=== PATIENT | female | born 1965 | race Hispanic/Latino ===

== ENCOUNTER 2021-04-14 03:18 | Emergency (ER) | payer BC ==
--- OUTSIDE RECORDS SUMMARY | 2021-04-14 03:21 | XMS REPORT | Continuity of Care Document ---
:1965 Author Organization [facility] t Address [address] [place] [address] Care Team Providers Name Role Phone Tristan Lagunas DO Attending Clinician Kaitlin GARG Attending Clinician Problems This patient has no known problems. Allergies, Adverse Reactions, Alerts This patient has no known allergies or adverse reactions. Medications This patient has no known medications. Procedures This patient has no known procedures. Encounters Start End Encounter Admission Attending Care Care Encounter Source Date/Time Date/Time Type Type Clinicians Facility Department ID 2020-12-15 2020-12-15 Patient ADAM Lagunas [id number] 00:00:00 00:00:00 Outreach Johnny BLANC [id number] Tristan [facility] [id number] BRUCE [id number] 2020-09-25 2020-09-25 Office ADAM Madrigal [id number] 14:58:40 15:28:40 Visit Justyna Johnson [id number] Eleonora [id number] Caro [id number] [address] Building Results This patient has no known results.
[2021-04-14 04:31] LABS: Absolute Lymphocytes (CBC) 2.6 K/uL (0.7-4.9); Basophils % 0.3 % (0-1.3); Hematocrit 39.3 % (36.0-45.0); Lymphocytes % 27.9 % (15.3-44.8)
[2021-04-14] MEDS ORDERED: MORPHINE 4 MG/ML SYR ONE ×2 (04:38→06:34)
[2021-04-14] MEDS ORDERED: ONDANSETRON 4 MG/2 ML VIAL ONE (04:38)
[2021-04-14 04:49] LABS: ALT/SGPT 48 U/L (12-78); AST/SGOT 55 U/L (15-37); Alkaline Phosphatase 68 U/L (45-117); BUN Blood Urea Nitrogen 10 mg/dL (7-18); Bicarbonate 25 mmol/L (21-32); Bilirubin Direct < 0.1 mg/dL (0-0.2); Bilirubin Total 0.5 mg/dL (0.2-1.0); Glucose Level 113 mg/dL (74-106); Lipase 55 U/L (73-393); Potassium 4.2 mmol/L (3.5-5.1); Protein, Total 7.5 g/dL (6.4-8.2); Sodium Level 140 mmol/L (136-145)
[2021-04-14 06:12] LABS: Urine Blood Trace-intact (Negative); Urine Glucose Negative (Negative); Urine Protein Negative (Negative); Urine Specific Gravity 1.015 (1.005-1.030); Urine pH 5.5 (5.0-7.0)
--- NOTE | 2021-04-14 08:35 | RAD REPORT ---
EXAM DESCRIPTION: CT - Abdomen Pelvis W Contrast - 04/14/2021 5:53 am CLINICAL HISTORY: Abdominal pain COMPARISON: none. TECHNIQUE: Computed axial tomography of the abdomen pelvis was obtained. 100 cc Isovue-300 was admin istered intravenously. Oral contrast was not requested which limits evaluation of bowel. All CT scans are performed using dose optimization technique as appropriate and may include automated exposure control or mA/KV adjustment according to patient size. FINDINGS: The exam was sent to [facility]ology/[facility] but did not get read. They are being submi tted to me for interpretation. Mild fatty infiltration of liver. Spleen, pancreas, adrenal and kidneys appear unremarkable. Postsurgical changes involve the cecum. There is stranding within the adjacent fat and mild lymphaden opathy. The proximal ascending colon is distended with stool measuring 7.3 centimeters. Small ventral hernia contains fat within the mid abdomen. IMPRESSION: Postsurgical changes involve cecum. The proximal ascending colon is mildly distended wit h stool. Stranding within the adjacent fat of the ascending colon near the anastomotic site could be a normal postsurgical change if the surgery is recent. If not recent surgery this probably indicates inflammation. There is mild adjacent lymphadenopathy. If the surgery was for neoplasm this could mine beverley recurrent disease.
--- NOTE | 2021-04-14 08:58 | ER ---
Nurse's Notes [facility] Name: iLn Garrison Age: 56 yrs Sex: Female : 1965 Arrival Date: 04/14/2021 Time: 03:19 Bed 19 Private MD: Ryan Cheema R Diagnosis: Abdominal pain, Generalized Presentation: 04/14 03:33 Chief complaint: Patient states: having lower abdominal pain stared last Thursday with rr5 diarrhea and fever. no nausea or vomiting reported. Coronavirus screen: Client denies travel out of the [place] in the last 14 days. Ebola Screen: Patient negative for fever greater than or equal to 101.5 degrees Fahrenheit, and additional compatible Ebola Virus Disease symptoms Patient denies exposure to infectious person. Patient denies travel to an Ebola-affected area in the 21 days before illness onset. Initial Sepsis Screen: Does the patient meet any 2 criteria? No. Patient's initial sepsis screen is negative. Does the patient have a suspected source of infection? No. Patient's initial sepsis screen is negative. Risk Assessment: Do you want to hurt yourself or someone else? Patient reports no desire to harm self or others. Onset of symptoms was April 14, 2021. 03:33 Method Of Arrival: Ambulatory rr5 03:33 Acuity: KEYSHA 3 rr5 Historical: - Allergies: 03:34 No Known Allergies; rr5 - PMHx: 03:34 Diabetes mellitus; rr5 - PSHx: 03:34 hysterectomy; Appendectomy; Cholecystectomy; rr5 - Immunization history:: Adult Immunizations up to date. - Social history:: Smoking status: unknown. Screenin:32 Abuse screen: Denies threats or abuse. Denies injuries from another. Nutritional rr5 screening: No deficits noted. Tuberculosis screening: No symptoms or risk factors identified. Fall Risk IV access (20 points). Total Mohamud Fall Scale indicates No Risk (0-24 pts). Assessment: 04:30 General: Appears in no apparent distress. uncomfortable, Behavior is calm, cooperative, rr5 crying, Reports fever for. Pain: Complains of pain in abdomen Pain currently is 10 out of 10 on a pain scale. Quality of pain is described as aching, Pain began gradually, Is intermittent. Neuro: Level of Consciousness is awake, alert, obeys commands, Oriented to person, place, time. Cardiovascular: Capillary refill < 3 seconds Patient's skin is warm and dry. Respiratory: Airway is patent Respiratory effort is even, unlabored, Respiratory pattern is regular, symmetrical. GI: Abdomen is round non-distended, Abd is soft Reports lower abdominal pain, upper abdominal pain, diarrhea. : No signs and/or symptoms were reported regarding the genitourinary system. EENT: No signs and/or symptoms were reported regarding the EENT system. Derm: Skin temperature is warm. Musculoskeletal: Capillary refill < 3 seconds. 05:50 Reassessment: Patient appears in no apparent distress at this time. Patient is alert, rr5 oriented x 3, equal unlabored respirations, skin warm/dry/pink. awaiting for CT result Patient states symptoms have improved. 06:16 Reassessment: Patient appears in no apparent distress at this time. Patient is alert, rr5 oriented x 3, equal unlabored respirations, skin warm/dry/pink. complaining of abdominal pain 8, provider aware with order made and carried out. 07:00 General: Appears in no apparent distress. Behavior is calm, cooperative. Pain: rb3 Complains of pain in abdomen Pain currently is 5 out of 10 on a pain scale. Neuro: Level of Consciousness is awake, alert, obeys commands, Oriented to person, place, time, situation. Cardiovascular: Patient's skin is warm and dry. Respiratory: Airway is patent Respiratory effort is even, unlabored, Respiratory pattern is regular, symmetrical. GI: Reports diarrhea. : No signs and/or symptoms were reported regarding the genitourinary system. 08:00 Reassessment: Patient appears in no apparent distress at this time. No changes from rb3 previously documented assessment. 09:00 Reassessment: Patient appears in no apparent distress at this time. Patient and/or rb3 family updated on plan of care and expected duration. Pain level reassessed. Patient is alert, oriented x 3, equal unlabored respirations, skin warm/dry/pink. Vital Signs: 03:33 BP 131 / 95; Pulse 86; Resp 16; Temp 99; Pulse Ox 100% ; Weight 90.72 kg; Height 5 ft. rr5 4 in. (162.56 cm); Pain 10/; 05:51 BP 141 / 89; Pulse 90; Resp 19; Pulse Ox 98% ; rr5 06:15 BP 147 / 77; Pulse 85; Resp 16; Pulse Ox 99% ; Pain 8/10; rr5 06:33 BP 146 / 77; Pulse 84; Resp 16; Pulse Ox 100% on R/A; ak2 07:30 BP 140 / 78; Pulse 102; Resp 16; Pulse Ox 99% ; Pain 5/10; rb3 08:15 BP 127 / 71; Pulse 98; Resp 17; Pulse Ox 96% ; rb3 09:10 BP 143 / 67; Pulse 103; Resp 19; Pulse Ox 99% ; rb3 03:33 Body Mass Index 34.33 (90.72 kg, 162.56 cm) rr5 ED Course: 03:19 Patient arrived in ED. am4 03:19 Ryan Cheema MD is Private Physician. am4 03:20 Gilberto Bhardwaj RN is Primary Nurse. rr5 03:29 Chuck Horta MD is Attending Physician. 7 03:34 Triage completed. rr5 04:15 Inserted saline lock: 20 gauge in right antecubital area, using aseptic technique. rr5 Blood collected. 04:30 EKG done, by ED staff, reviewed by Chuck Horta MD. rr5 04:30 Patient has correct armband on for positive identification. Bed in low position. Call rr5 light in reach. Side rails up X2. Pulse ox on. NIBP on. 04:32 Arm band placed on right wrist. rr5 05:53 CT Abd/Pelvis - IV Contrast Only In Process Unspecified. EDMS 06:16 No provider procedures requiring assistance completed. rr5 09:35 IV discontinued, intact, bleeding controlled, No redness/swelling at site. Pressure rb3 dressing applied. Administered Medications: 04:20 Drug: NS 0.9% 1000 ml Route: IV; Rate: 1000 ml; Site: right antecubital; ak2 06:00 Follow up: Response: No adverse reaction; IV Status: Completed infusion; IV Intake: rr5 1000ml 04:20 Drug: morphine 4 mg Route: IVP; Site: right antecubital; ak2 05:20 Follow up: Response: No adverse reaction; Pain is decreased; RASS: Alert and Calm (0) rr5 04:20 Drug: Zofran (Ondansetron) 4 mg Route: IVP; Site: right antecubital; ak2 05:20 Follow up: Response: No adverse reaction rr5 06:15 Drug: morphine 4 mg {Note: rass 0.} Route: IVP; Site: right antecubital; rr5 07:06 Follow up: Response: No adverse reaction; RASS: Alert and Calm (0) rr5 09:32 Drug: TORadol (ketorolac) 30 mg Route: IVP; Site: right antecubital; rb3 12:37 Follow up: Response: Medication administered at discharge. rb3 Intake: 06:00 IV: 1000ml; Total: 1000ml. rr5 Outcome: 08:58 Discharge ordered by MD. tw4 09:35 Discharged to home via wheelchair, with family. rb3 09:35 Condition: stable 09:35 Discharge instructions given to patient, Instructed on discharge instructions, follow up and referral plans. medication usage, Demonstrated understanding of instructions, follow-up care, medications, Prescriptions given X 1. 09:36 Patient left the ED. rb3 Signatures: Dispatcher [employer] EDMS Denis Frank MD MD tw4 Gilberto Bhardwaj, RN RN rr5 Chuck Horta MD MD mh7 Gisella Alexander, RN RN rb3 Jillian Yancey Juan Osuna de2
--- NOTE | 2021-04-14 08:58 | EDPHYS ---
Physician Documentation [facility] Name: Lin Garrison Age: 56 yrs Sex: Female : 1965 Arrival Date: 04/14/2021 Time: 03:19 Bed 19 Private MD: Ryan Cheema R ED Physician Chuck Horta HPI: 04/14 04:00 This 56 yrs old Female presents to ER via Ambulatory with complaints of mh7 Abdominal Pain. 04:00 The patient presents with abdominal pain that is diffuse. Onset: The symptoms/episode mh7 began/occurred 4 day(s) ago. The symptoms do not radiate. Associated signs and symptoms: Pertinent positives: diarrhea, fever, Pertinent negatives: nausea and vomiting, anorexia, blood in stools, chest pain, constipation, dysuria, headache, hematuria, nausea, palpitations, shortness of breath, vaginal discharge, vomiting, vomiting blood. The symptoms are described as intermittent, vague, waxing/waning. Modifying factors: The symptoms are alleviated by nothing, the symptoms are aggravated by nothing. Severity of pain: At its worst the pain was moderate 3 day(s) ago, in the emergency department the pain is unchanged. Historical: - Allergies: 03:34 No Known Allergies; rr5 - PMHx: 03:34 Diabetes mellitus; rr5 - PSHx: 03:34 hysterectomy; Appendectomy; Cholecystectomy; rr5 - Immunization history:: Adult Immunizations up to date. - Social history:: Smoking status: unknown. ROS: 04:00 Constitutional: Negative for fever, chills, and weight loss, Eyes: Negative for injury, mh7 pain, redness, and discharge, ENT: Negative for injury, pain, and discharge, Neck: Negative for injury, pain, and swelling, Cardiovascular: Negative for chest pain, palpitations, and edema, Respiratory: Negative for shortness of breath, cough, wheezing, and pleuritic chest pain, Back: Negative for injury and pain, : Negative for injury, bleeding, discharge, and swelling, MS/Extremity: Negative for injury and deformity, Skin: Negative for injury, rash, and discoloration, Neuro: Negative for headache, weakness, numbness, tingling, and seizure, Psych: Negative for depression, anxiety, suicide ideation, homicidal ideation, and hallucinations, Allergy/Immunology: Negative for hives, rash, and allergies, Endocrine: Negative for neck swelling, polydipsia, polyuria, polyphagia, and marked weight changes, Hematologic/Lymphatic: Negative for swollen nodes, abnormal bleeding, and unusual bruising. Exam: 04:00 Constitutional: This is a well developed, well nourished patient who is awake, alert, mh7 and in no acute distress. Head/Face: Normocephalic, atraumatic. Eyes: Pupils equal round and reactive to light, extra-ocular motions intact. Lids and lashes normal. Conjunctiva and sclera are non-icteric and not injected. Cornea within normal limits. Periorbital areas with no swelling, redness, or edema. Neck: Trachea midline, no thyromegaly or masses palpated, and no cervical lymphadenopathy. Supple, full range of motion without nuchal rigidity, or vertebral point tenderness. No Meningismus. Chest/axilla: Normal chest wall appearance and motion. Nontender with no deformity. No lesions are appreciated. Cardiovascular: Regular rate and rhythm with a normal S1 and S2. No gallops, murmurs, or rubs. Normal PMI, no JVD. No pulse deficits. Respiratory: Lungs have equal breath sounds bilaterally, clear to auscultation and percussion. No rales, rhonchi or wheezes noted. No increased work of breathing, no retractions or nasal flaring. 04:00 Back: No spinal tenderness. No costovertebral tenderness. Full range of motion. Skin: Warm, dry with normal turgor. Normal color with no rashes, no lesions, and no evidence of cellulitis. MS/ Extremity: Pulses equal, no cyanosis. Neurovascular intact. Full, normal range of motion. Neuro: Awake and alert, GCS 15, oriented to person, place, time, and situation. Cranial nerves II-XII grossly intact. Motor strength 5/5 in all extremities. Sensory grossly intact. Cerebellar exam normal. Normal gait. Psych: Awake, alert, with orientation to person, place and time. Behavior, mood, and affect are within normal limits. 04:00 Abdomen/GI: Inspection: abdomen appears normal, Bowel sounds: normal, in all quadrants, Palpation: moderate abdominal tenderness, in all quadrants, mass, is not appreciated, rebound tenderness, is not appreciated, voluntary guarding, is not appreciated, involuntary guarding, is not appreciated, no appreciated organomegaly, Rectal exam: the exam is deferred, because of patient request, Indicators: McBurney's point is not tender, Griffith's sign is negative, Rovsing's sign is negative, Obturator sign is negative, Psoas sign is negative, Liver: no appreciated palpable abnormalities, Hernia: not appreciated. Vital Signs: 03:33 BP 131 / 95; Pulse 86; Resp 16; Temp 99; Pulse Ox 100% ; Weight 90.72 kg; Height 5 ft. rr5 4 in. (162.56 cm); Pain 10/10; 05:51 BP 141 / 89; Pulse 90; Resp 19; Pulse Ox 98% ; rr5 06:15 BP 147 / 77; Pulse 85; Resp 16; Pulse Ox 99% ; Pain 8/10; rr5 06:33 BP 146 / 77; Pulse 84; Resp 16; Pulse Ox 100% on R/A; ak2 07:30 BP 140 / 78; Pulse 102; Resp 16; Pulse Ox 99% ; Pain 5/10; rb3 08:15 BP 127 / 71; Pulse 98; Resp 17; Pulse Ox 96% ; rb3 09:10 BP 143 / 67; Pulse 103; Resp 19; Pulse Ox 99% ; rb3 03:33 Body Mass Index 34.33 (90.72 kg, 162.56 cm) rr5 MDM: 07:25 Transition of care: After a detail discussion of the patient's case, care is 7 transferred to Denis Frank MD. 08:58 Patient medically screened. 09:21 Data reviewed: vital signs, nurses notes, radiologic studies, CT scan. 04/14 03:52 Order name: Basic Metabolic Panel; Complete Time: 05:55 04/14 03:52 Order name: CBC with Diff; Complete Time: 05:55 04/14 03:52 Order name: Hepatic Function; Complete Time: 05:55 04/14 03:52 Order name: Lipase; Complete Time: 05:55 04/14 04:16 Order name: CT Abd/Pelvis - IV Contrast Only; Complete Time: 08:57 [facility] 04/14 09:21 Interpretation: No acute disease except. 4 04/14 06:11 Order name: Urine Dipstick-Ancillary; Complete Time: 06:13 EDMS 04/14 03:52 Order name: IV Saline Lock; Complete Time: 04:12 rr5 04/14 03:52 Order name: Labs collected and sent; Complete Time: 04:12 rr5 04/14 04:16 Order name: Urine Dipstick-Ancillary (obtain specimen); Complete Time: 06:15 mh7 04/14 04:16 Order name: EKG - Nurse/Tech; Complete Time: 04:30 mh7 Administered Medications: 04:20 Drug: NS 0.9% 1000 ml Route: IV; Rate: 1000 ml; Site: right antecubital; ak2 06:00 Follow up: Response: No adverse reaction; IV Status: Completed infusion; IV Intake: rr5 1000ml 04:20 Drug: morphine 4 mg Route: IVP; Site: right antecubital; ak2 05:20 Follow up: Response: No adverse reaction; Pain is decreased; RASS: Alert and Calm (0) rr5 04:20 Drug: Zofran (Ondansetron) 4 mg Route: IVP; Site: right antecubital; ak2 05:20 Follow up: Response: No adverse reaction rr5 06:15 Drug: morphine 4 mg {Note: rass 0.} Route: IVP; Site: right antecubital; rr5 07:06 Follow up: Response: No adverse reaction; RASS: Alert and Calm (0) rr5 09:32 Drug: TORadol (ketorolac) 30 mg Route: IVP; Site: right antecubital; rb3 12:37 Follow up: Response: Medication administered at discharge. rb3 Disposition Summary: 04/14/21 08:58 Discharge Ordered Location: Home tw4 Problem: new tw4 Symptoms: have improved tw4 Condition: Stable tw4 Diagnosis - Abdominal pain, Generalized tw4 Followup: tw4 - With: Private Physician - When: Upon discharge from the Emergency Department - Reason: Recheck today's complaints, Continuance of care, Re-evaluation by your physician Discharge Instructions: - Discharge Summary Sheet tw4 - Constipation, Adult tw4 - Abdominal Pain, Adult, [id number] tw4 - Ventral Hernia tw4 Forms: - Medication Reconciliation Form tw4 - Thank You Letter tw4 - Antibiotic Education tw4 - Prescription Opioid Use tw4 Prescriptions: - Miralax 17 gram Oral powder in packet - take 1 packet by ORAL route once daily; 1 packet; Refills: 0, Product Selection tw4 Permitted Signatures: Dispatcher [employer] Denis Craig MD MD tw4 Gilberto Bhardwaj RN RN rr5 Chuck Horta MD MD mh7 Gisella Alexander RN RN rb3 Juan Ren2 Corrections: (The following items were deleted from the chart) 05:02 04:59 This 56 yrs old Female presents to ER via Ambulatory with complaints of mh7 Abdominal Pain. mh7
[2021-04-14 09:44] VITALS: TEMP 99
[2021-04-14] MEDS ORDERED: KETOROLAC 30 MG/ML INJ ONE (09:47)
[2021-04-14 09:54] VITALS: BP 143/67; O2SAT 99
--- NOTE | 2021-04-15 16:09 | EKG ---
Test Date: 2021-04-14 Test Time: 04:25:04 County Records Management Officer: ISABEL MEASUREMENT RESULTS: Intervals: Rate: 89 MA: 174 QRSD: 70 QT: 354 QTc: 430 [place]: P: 63 MA: 174 QRS: 33 T: 41 INTERPRETIVE STATEMENTS: Normal sinus rhythm Possible Left atrial enlargement Borderline ECG No previous ECG available for comparison Electronically Signed On 04-15-21 16:04:34 CDT by Chema Gomez
== END 2021-04-14 09:36 | disposition home or self-care (01) ==
LOC: ER 03:18
DX: R10.84 Generalized abdominal pain (principal); E11.9 Type 2 diabetes mellitus without complications
CPT/HCPCS: 96361; 93005; 85025; 80048; 36415; 80076; 81003; 83690; 74177; 96375; 96374; 99284; Q9967; J2405

== ENCOUNTER 2025-01-01 07:54 | Inpatient (IN) | payer BC ==
--- OUTSIDE RECORDS SUMMARY | 2025-01-01 07:58 | XMS REPORT | Continuity of Care Document ---
Author Name Unknown Address [address] [place] [address] [facility] [place] Address [address] [place] [address] Care Team Providers Care Assembler Wire Mesh Gate Name Role Phone CYNTHIA GEOVANNY CHAKRABORTY Primary Care Physician Unavail JEREMY Tatum Attending Clinician JEREMY Yun Attending Clinician Vanessa altman Doctor Unassigned, [place] Attending Clinician U JUSTYNA Guzman Attending Clinician Unavailable Justyna Garcia PA-C Attending Clinician Johnny Lagunas DO Attending Clinician [phone] ZULEMA GARCIA Attending Clinician Unavailable JEREMY HOGAN Admitting Clinician ZULEMA Monroy Admitting Clinician Unavailable Payers Payer Name Policy Type Policy Number Effective Date Expirati on Date Source [facility] O [id number] 2014 00:00:00 Problems Condition Name Condition Details Condition Category Status Onset Date Resolution Date Last Treatment Date Treating Clinician Comments Source Postmenopa usal HRT (hormone replacemen t therapy) Postmenopa usal HRT (hormone replacemen t therapy) Disease Active 02-06 00:00: 00 [facility] [place] History of total hysterecto my with no history of abnormal cervical Papanicola ou smear History of total hysterecto my with no history of abnormal cervical Papanicola ou smear Disease Active 2016-10 00:00: 00 [facility] Obese Obese Disease Active 06-27 00:00: 00 [facility] ARCHIE (stress urinary incontinen ce, female) ARCHIE (stress urinary incontinen ce, female) Disease Active 06-24 00:00: 00 [facility] Screening for colon cancer Screening for colon cancer Disease Active 06-24 00:00: 00 [facility] Depression Depression Disease Active 06-24 00:00: 00 [facility] Decreased libido Decreased libido Disease Active 06-24 00:00: 00 [facility] Allergies, Adverse Reactions, Alerts Allergy Name Allergy Type Status Severity Reaction(s) Onset Date Inactive Date Treating Clinician Comments Source NO KNOWN ALLERGIE S Drug Class Active [facility] Social History Social Habit Start Date Stop Date Quantity Comments Source [facility] intake 2024-02-12 00:00:00 2024-02-12 00:00:00 0 /d [facility] Exposure to SARS-CoV-2 (event) 2023-01-27 00:00:00 2023-02-06 14:15:00 Not sure [facility] Tobacco use and exposure 2023-02-06 00:00:00 2023-02-06 00:00:00 Smokeless tobacco non-user [facility] Alcohol intake 2023-02-06 00:00:00 2023-02-06 00:00:00 0 /d [facility] History of Social function 2019-04-14 00:00:00 2019-04-14 00:00:00 [facility] Sex assigned at 1965 00:00:00 1965 00:00:00 [facility] Smoking Status Start Date Stop Date Source Never smoked tobacco [facility] Medications Ordered Medication Name Filled Medication Name Start Date Stop Date Current Medication? Ordering Clinician Indication Dosage Frequency Signature (SIG) Comments Components Source estradioL 0.5 mg tablet 02-11 00:00: 00 Yes [id number] .5mg Take 1 tablet by mouth in the morning. Please cut in half an take half a pill daily. [facility] estradioL 0.5 mg tablet 04-09 00:00: 00 02-11 00:00 :00 No [id number] .5mg Take 1 tablet by mouth in the morning. [facility] estradioL 0.5 mg tablet 2020-10 00:00: 00 04-09 00:00 :00 No [id number] .5mg Take 1 tablet by mouth daily. [facility] estradioL 0.5 mg tablet 2019-10 00:00: 00 09-30 00:00 :00 No [id number] .5mg Take 1 tablet by mouth daily. [facility] Immunizations Ordered Immunization Name Filled Immunization Name Date Status Comments Source Influenza Virus Vaccine 2021-07-05 00:00:00 Completed [facility] Influenza Virus Vaccine 2021-07-05 00:00:00 Completed [facility] Influenza Virus Vaccine 2021-07-05 00:00:00 Completed [facility] Influenza Virus Vaccine 2021-07-05 00:00:00 Completed [facility] Influenza Virus Vaccine 2021-07-05 00:00:00 Completed [facility] Influenza Virus Vaccine 2020-09-01 00:00:00 Completed [facility] Influenza Virus Vaccine 2020-09-01 00:00:00 Completed [facility] Influenza Virus Vaccine 2020-09-01 00:00:00 Completed [facility] Influenza Virus Vaccine 2020-09-01 00:00:00 Completed [facility] Influenza Virus Vaccine 2020-09-01 00:00:00 Completed [facility] Pneumococcal Polysaccharide, PPSV23 (PNEUMOVAX) 2020-08-10 00:00:00 Completed [facility] Pneumococcal Polysaccharide, PPSV23 (PNEUMOVAX) 2020-08-10 00:00:00 Completed [facility] Pneumococcal Polysaccharide, PPSV23 (PNEUMOVAX) 2020-08-10 00:00:00 Completed [facility] Pneumococcal Polysaccharide, PPSV23 (PNEUMOVAX) 2020-08-10 00:00:00 Completed [facility] Pneumococcal Polysaccharide, PPSV23 (PNEUMOVAX) 2020-08-10 00:00:00 Completed [facility] Influenza Virus Vaccine 2018-07-09 00:00:00 Completed [facility] Influenza Virus Vaccine 2018-07-09 00:00:00 Completed [facility] Influenza Virus Vaccine 2018-07-09 00:00:00 Completed [facility] Influenza Virus Vaccine 2018-07-09 00:00:00 Completed [facility] Influenza Virus Vaccine 2018-07-09 00:00:00 Completed [facility] Influenza Virus Vaccine Unknown Completed [facility] Pneumococcal Polysaccharide, PPSV23 (PNEUMOVAX) Unknown Completed [facility] Pneumococcal Polysaccharide, PPSV23 (PNEUMOVAX) Unknown Completed [facility] Influenza Virus Vaccine Unknown Completed [facility] Influenza Virus Vaccine Unknown Completed [facility] Pneumococcal Polysaccharide, PPSV23 (PNEUMOVAX) Unknown Completed [facility] Influenza Virus Vaccine Unknown Completed [facility] Pneumococcal Polysaccharide, PPSV23 (PNEUMOVAX) Unknown Completed [facility] Vital Signs Vital Name Observation Time Observation Value Comments S ource Systolic blood pressure 2024-02-12 16:35:00 138 mm[Hg] [facility] Diastolic blood pressure 2024-02-12 16:35:00 78 mm[Hg] [facility] Heart rate 2024-02-12 16:35:00 97 /min [facility] acute hospital Body temperature 2024-02-12 16:35:00 36.89 Lillian [facility] Body height 2024-02-12 16:35:00 162.6 cm [facility] Body weight 2024-02-12 16:35:00 87.544 kg [facility] BMI 2024-02-12 16:35:00 33.13 kg/m2 [facility] Systolic blood pressure 2023-02-06 19:36:00 97 mm[Hg] [facility] Diastolic blood pressure 2023-02-06 19:36:00 65 mm[Hg] [facility] Heart rate 2023-02-06 19:36:00 86 /min General acute hospital Body temperature 2023-02-06 19:36:00 37.06 Lillian [facility] Body height 2023-02-06 19:36:00 162.6 cm [facility] Body weight 2023-02-06 19:36:00 95.618 kg [facility] BMI 2023-02-06 19:36:00 36.18 kg/m2 [facility] Systolic blood pressure 2021-09-30 14:26:00 123 mm[Hg] [place] [facility] Diastolic blood pressure 2021-09-30 14:26:00 85 mm[Hg] [place] [facility] Heart rate 2021-09-30 14:26:00 62 /min General acute hospital Body temperature 2021-09-30 14:26:00 37.06 Lillian [facility] Body height 2021-09-30 14:26:00 162.6 cm [facility] Body weight 2021-09-30 14:26:00 91.717 kg [facility] BMI 2021-09-30 14:26:00 34.71 kg/m2 [facility] Procedures Procedure Date / Time Performed Performing Clinicia n Source ASSIGNMENT OF BENEFITS 2023-02-06 19:17:16 Docto r Unassigned, [place] [facility] Encounters Start Date/Time End Date/Time Encounter Type Admission Type Attending [facility] Care Department Encounter ID Source 2024-02-12 12:29:10 2024-02-12 23:59:00 Outpatient R JEREMY RICCI MARISOL [facility] [id number] [facility] 2024-02-12 12:29:10 2024-02-12 23:59:00 Hospital Encounter Jeremy Ricci [facility] [id number] 350.1.13.10 4.2.7.2.686 [id number] [facility] 2024-02-12 00:00:00 2024-02-12 16:32:30 [facility] [id number] 350.1.13.10 4.2.7.2.686 [id number] [facility] 2024-02-12 11:30:00 2024-02-12 12:00:00 [facility] 1.2840.114 350.1.13.10 4.2.7.2.686 [id number] [facility] 2023-08-18 00:00:00 2023-08-18 00:00:00 Patient Secure Msg Doctor Unassigned, [place] [facility] 1.284.114 350.1.13.10 4.2.7.2.686 [id number] [facility] 2023-04-09 00:00:00 2023-04-09 00:00:[facility] 1.2840.114 350.1.13.10 4.2.7.2.686 [id number] [facility] 2023 09:26:30 2023 23:59:00 Outpatient R VILLELA-MIRIAN S, JEREMY VILLELA-MIRIAN S, JEREMY [facility] [id number] [facility] 2023 09:26:30 2023 23:59:00 Hospital Encounter Villela-Miiran s, Jeremy [facility] 1.2840.114 350.1.13.10 4.2.7.2.686 [id number] [facility] 2023-02-06 14:30:00 2023-02-06 15:12:41 Office Visit [facility]ian [facility]Jeremy [facility] 1.2840.114 350.1.13.10 4.2.7.2.686 [id number] [facility] 2023-02-06 14:30:00 2023-02-06 15:12:41 Outpatient R VILLELA-MIRIAN S, JEREMY VILLELA-MIRIAN S, JEREMY [facility] [id number] [facility] 2023-02-06 00:00:00 2023-02-06 00:00:00 Orders Only Doctor Unassigned, [place] [facility] [id number] 350.1.13.10 4.2.7.2.686 [id number] [facility] 2022-09-30 08:00:00 2022-09-30 08:00:00 [id number] 2021-09-30 08:00:00 2021-09-30 08:53:29 Outpatient R [facility] [id number] [facility] 2021-09-30 08:00:00 2021-09-30 08:53:29 Office Visit Justyna Garcia [facility] 1.2840.114 350.1.13.10 4.2.7.2.686 [id number] [facility] 2020-12-15 00:00:00 2020-12-15 00:00:00 Patient Outreach Johnny Lagunas [facility] [id number] 350.1.13.10 4.2.7.2.686 [id number] 2020-12-15 00:00:00 2020-12-15 00:00:00 Patient Outreach Johnny Lagunas [facility] 1.2.840.114 350.1.13.10 4.2.7.2.686 [id number] [facility] 2020-09-25 14:58:40 2020-09-25 15:28:40 [facility] [id number] 350.1.13.10 4.2.7.2.686 [id number] 2020-09-25 14:58:40 2020-09-25 15:28:40 [facility] [id number] 350.1.13.10 4.2.7.2.686 [id number] [facility] 2020-09-25 15:00:00 2020-09-25 15:00:00 Outpatient R JUSTYNA GARCIA [facility] [id number] [facility] 2020-09-25 00:00:00 2020-09-25 00:00:00 Orders Only Doctor Unassigned, [place] [facility] [id number] 350.1.13.10 4.2.7.2.686 [id number] [facility] 2019-09-07 10:01:07 2019-09-07 23:59:00 Outpatient R ZULEMA GARCIA [facility] [id number] [facility] Notes Date/Time Note Provider Source 2024-02-12 16:31:52 Spoke with pharmacy. Pharmacy advised patient is cut 0.5 mg tablet in half. Take daily. Skinny Alston RN [facility] 2024-02-12 12:11:17 [facility] pharm needs to go over directions on med that was called in. Migdalia Gandara [facility]
[2025-01-01] MEDS ORDERED: ONDANSETRON 4 MG/2 ML VIAL ONE (08:17)
[2025-01-01] MEDS ORDERED: MORPHINE 4 MG/ML SYR ONE (08:17)
[2025-01-01 08:56] LABS: Absolute Basophils 0.1 K/uL (0-0.5); Absolute Lymphocytes (CBC) 1.3 K/uL (0.7-4.9); Absolute Monocytes 0.2 K/uL (0.1-1.3); Absolute Neutrophil 7.5 K/uL (1.8-8.0); Basophils % 0.6 % (0-1.3); Hematocrit 42.1 % (36.0-45.0); Hemoglobin 14.5 g/dL (12.0-15.0); Lymphocytes % 14.1 % (15.3-44.8); MCH 32.5 pg (27.0-35.0); MCHC 34.6 g/dL (32.0-36.0); MCV 93.9 fL (80-100); MPV 8.5 fL (7.6-11.3); Monocytes % 2.7 % (3.3-12.3); Neutrophils % 82.6 % (41.7-73.7); Platelets 201 thou/uL (152-406); RBC Red Blood Cell Count 4.48 M/uL (3.86-4.86); Red Cell Distribution Width 13.1 % (12.1-15.2)
[2025-01-01 08:59] LABS: Influenza A Ag Negative; Influenza B Ag Negative; SARS-CoV-2 Antigen Rapid Res Negative (Negative)
[2025-01-01 09:09] LABS: Albumin 3.7 g/dL (3.4-5.0); Albumin/Globulin Ratio 0.9 (1.1-1.8); Anion Gap 13.6 mEq/L (5.0-15.0); Bilirubin Total 0.6 mg/dL (0.2-1.0); Globulin 4.2 g/dL (2.3-3.5); Potassium 3.6 mEq/L (3.5-5.1); Protein, Total 7.9 g/dL (6.4-8.2)
--- NOTE | 2025-01-01 09:50 | RAD REPORT ---
EXAMINATION: Abdomen Pelvis W Contrast CLINICAL INDICATION: Female, 59 years old.Abd pain;Nausea / vomiting TECHNIQUE: CT abdomen and pelvis was performed, after the administration of IV contrast, as per [facility] protocol. Axial, sagittal and coronal reconstructions were obtained. One or more of the following dose reduction techniques were used: Automated exposure control, adjustment of the mA and/o r kV according to patient size, and/or iterative reconstruction. Unless otherwise specified, incidental findings do not require dedicated imaging follow-up. [id number]. COMPARISON: No prior exam. FINDINGS: LOWER CHEST: No acute process identified.No significant pericardial effusion. Small hiatal hernia wit h circumferential thickening of the esophagus which could reflect esophagitis. UPPER GI: No significant abnormality. LIVER: No significant focal abnormality. GALLBLADDER/BILE DUCTS: Cholecystectomy. Mild extra-hepatic biliary ductal dilatation is likely relat ed to the post-cholecystectomy state. Consider correlating with LFT's.? PANCREAS: No mass, ductal dilation, or constantin-pancreatic fluid. SPLEEN: Unremarkable. ADRENALS: No adrenal masses. KIDNEYS AND URETERS: No hydronephrosis.No suspicious renal mass.Nonobstructing renal calculi.No urete r ABDOMINAL AORTA AND OTHER VESSELS: Normal caliber aorta and IVC. PERITONEUM: Nonspecific free fluid. LYMPH NODES: No pathologic lymphadenopathy. ABDOMINAL WALL: Small fat-containing ventral hernia. SMALL BOWEL/COLON: Small bowel obstruction with transition point in the right hemiabdomen. There is s ome circumferential bowel wall thickening at the site of transition which is nonspecific.Appendix absent. Mild diverticulosis without diverticulitis. URINARY BLADDER: Underdistended but grossly unremarkable. REPRODUCTIVE ORGANS: No pathologic process. MUSCULOSKELETAL: No acute or suspicious osseous abnormality. ADDITIONAL FINDINGS: None. IMPRESSION: Small bowel obstruction with transition point at the distal small bowel where there is circumferentia l bowel wall thickening though without significant inflammatory changes. This could be secondary to an inflammatory stricture. Mild nonspecific mesenteric free fluid. No pneumatosis or portal venous ga s.
[2025-01-01] MEDS ORDERED: PROMETHAZINE INJ 25 MG/ML AMP ONE (10:18)
[2025-01-01] MEDS ORDERED: PIPERACIL/TAZO 3.375 GM VIAL IV ONE (10:18)
[2025-01-01] MEDS ORDERED: NA CHLORIDE 0.9% 100 ML ONE (10:18)
--- NOTE | 2025-01-01 10:30 | EDPHYS ---
Physician Documentation [facility] Name: Lin Garrison Age: 59 yrs Sex: Female : 1965 Arrival Date: 01/01/2025 Time: 07:54 Bed 7 Private MD: ED Physician Anselmo Pérez HPI: 01/01 08:14 This 59 yrs old Female presents to ER via Ambulatory with complaints of rn Abdominal Pain, Nausea/Vomiting. 08:14 The patient presents to the emergency department with nausea, vomiting, abdominal pain. rn Onset: The symptoms/episode began/occurred 2 day(s) ago. Possible causes: unknown. The symptoms are aggravated by pressure, The symptoms are alleviated by nothing. Severity of symptoms: At their worst the symptoms were moderate in the emergency department the symptoms are unchanged. The patient has experienced similar episodes in the past. The patient has not recently seen a physician. Patient reports mid abdominal pain associated with nausea and vomiting for 2 days. No fever or chills. Associated with decreased appetite. Patient reports has had "swollen intestines" twice in the past and this feels similar. Reports sharp stabbing pain worse with palpation. No trauma. No blood in the stool. No fever.. Historical: - Allergies: 08:35 Morphine (itching ); aa5 - PMHx: 08:06 diabetes mellitus; ss - PSHx: 08:06 Appendectomy; Cholecystectomy; hysterectomy; ss - Immunization history:: Client reports receiving the 2nd dose of the Covid vaccine. - Infectious Disease History:: Denies. - Social history:: Smoking status: Patient denies any tobacco usage or history of. - Family history:: not pertinent. - Hospitalizations: : No recent hospitalization is reported. ROS: 08:14 Constitutional: Negative for fever, chills, and weight loss, Cardiovascular: Negative rn for chest pain, palpitations, and edema, Respiratory: Negative for shortness of breath, cough, wheezing, and pleuritic chest pain, Abdomen/GI: Positive for abdominal pain with nausea and vomiting MS/Extremity: Negative for injury and deformity, Skin: Negative for injury, rash, and discoloration, Neuro: Negative for headache, weakness, numbness, tingling, and seizure, Exam: 08:14 Constitutional: This is a well developed, well nourished patient who is awake, alert, rn appears uncomfortable, tachypneic Head/Face: Normocephalic, atraumatic. ENT: Dry mucous membranes Cardiovascular: Regular rate and rhythm. No pulse deficits. Respiratory: Tachypnea, appears secondary to pain and discomfort. No wheezing Abdomen/GI: Soft, mid abdominal and epigastric tenderness. No distention. Vital Signs: 08:05 BP 157 / 88; Pulse 74; Resp 27; Temp 98(O); Pulse Ox 100% on R/A; Weight 88.9 kg; ss Height 5 ft. 4 in. ; Pain 10/10; 08:15 aa5 10:35 BP 154 / 87; Pulse 66; Resp 14 S; Pulse Ox 98% on R/A; aa5 08:05 Body Mass Index 33.64 (88.90 kg, 162.56 cm) ss 08:05 Pain Scale: Adult ss 08:15 NKDA aa5 MDM: 08:00 Medical Screening Exam initiated rn 10:16 Management of patient was discussed with the following: Healthcare Science Specialist: Discussed case with rn Dr. Abreu, is evaluating patient in room right now.. 10:27 Differential diagnosis: Nonspecific abd pain, gastritis, pancreatitis, viral rn gastroenteritis, gastroenteritis, SBO. Data reviewed: vital signs, nurses notes, lab test result(s), radiologic studies, CT scan, and as a result, I will admit patient. Consideration of Admission/Observation Patient was admitted/placed on observation. Escalation of care including admission/observation considered. Counseling: I had a detailed discussion with the patient and/or guardian regarding the historical points, exam findings, and any diagnostic results supporting the discharge/admit diagnosis, lab results, radiology results, the need for further work-up and treatment in the hospital. 10:30 ED course: Discussed case with Dr. Abreu, reports no need for NG tube unless starts rn throwing up.. 01/01 08:01 Order name: CBC with Diff; Complete Time: 09:54 rn 01/01 08:01 Order name: CMP; Complete Time: 09:54 rn 01/01 08:01 Order name: Lipase; Complete Time: 09:54 rn 01/01 08:01 Order name: Urinalysis w/ reflexes; Complete Time: 11:01 rn 01/01 08:01 Order name: COVID-19 Ag + Flu A+B Ag; Complete Time: 09:54 rn 01/01 11:43 Order name: Basic Metabolic Panel EDMS 01/01 11:43 Order name: Basic Metabolic Panel EDMS 01/01 11:43 Order name: Basic Metabolic Panel EDMS 01/01 11:43 Order name: Basic Metabolic Panel EDMS 01/01 11:43 Order name: Basic Metabolic Panel EDMS 01/01 11:43 Order name: CBC with Automated Diff EDMS 01/01 11:43 Order name: CBC with Automated Diff EDMS 01/01 11:43 Order name: CBC with Automated Diff EDMS 01/01 11:43 Order name: CBC with Automated Diff EDMS 01/01 11:43 Order name: CBC with Automated Diff EDMS 01/01 08:01 Order name: CT Abd/Pelvis - IV Contrast Only; Complete Time: 09:54 rn 01/01 11:43 Order name: Abdomen 1 View (KUB) EDMS 01/01 11:43 Order name: Abdomen 1 View (KUB) EDMS 01/01 08:01 Order name: IV Saline Lock; Complete Time: 08:46 rn 01/01 08:01 Order name: Labs collected and sent; Complete Time: 08:46 rn 01/01 10:00 Order name: NPO; Complete Time: 10:09 rn Administered Medications: 08:30 Drug: Ondansetron IVP 4 mg IVP once; over 2 minutes Route: IVP; Site: right forearm; aa5 08:32 Follow up: Response: No adverse reaction aa5 08:30 Drug: morphine IVP or IV 4 mg IVP once over 4 mins Route: IVP; Infused Over: 4 mins; aa5 Site: right forearm; 08:40 Follow up: pt c/o itching to IV site, MD was notified. aa5 10:25 Drug: Promethazine IVP 12.5 mg IVP once Route: IVP; Site: right antecubital; aa5 10:35 Follow up: Response: Nausea is decreased; RASS: Drowsy (-1) aa5 10:38 Drug: Piperacillin-Tazobactam IVPB 3.375 grams IVPB once over 60 mins; (mix in NS 100 aa5 mL) Route: IVPB; Infused Over: 60 mins; Site: right antecubital; 11:38 Follow up: IV Status: Completed infusion; IV Intake: 100ml aa5 Disposition Summary: 01/01/25 10:30 Hospitalization Ordered Notes: Hospitalization Status: Inpatient Admission rn Provider: Lamonte Hinojosa rn Condition: Stable rn Problem: new rn Symptoms: have improved rn Bed/Room Type: Standard rn Location: Telemetry/MedSurg (Inpatient)(01/01/25 16:23) sp Room Assignment: 205(01/01/25 16:23) sp Diagnosis - Other intestinal obstruction rn Forms: - Medication Reconciliation Form rn - SBAR form rn - Leadership Thank You Letter rn Signatures: Dispatcher [employer] EDAlayna Taylor Roman, MD MD rn Calderon, Audri, RN RN aa5 Kristie Hernandes RN RN ss Corrections: (The following items were deleted from the chart) 12:21 08:06 Allergies: No Known Allergies; ss aa5 13:59 10:30 Telemetry/MedSurg (Inpatient) rn ss 13:59 10:30 rn ss 16:23 13:59 [facility] ER HOLD ss sp 16:23 13:59 ERHOLD- ss sp
--- NOTE | 2025-01-01 10:30 | ER ---
Nurse's Notes [facility] Name: Lin Garrison Age: 59 yrs Sex: Female : 1965 Arrival Date: 01/01/2025 Time: 07:54 Bed 7 Private MD: Diagnosis: Other intestinal obstruction Presentation: 01/01 08:05 Chief complaint: Patient states: sharp abd pain, N/V that began last night. Pt reports ss this has happened two times before and was told she had swollen intestines. Coronavirus screen: Client denies travel out of the [place] in the last 14 days. Ebola Screen: Patient denies exposure to infectious person. Patient denies travel to an Ebola-affected area in the 21 days before illness onset. Initial Sepsis Screen: Does the patient meet any 2 criteria? No. Patient's initial sepsis screen is negative. Does the patient have a suspected source of infection? No. Patient's initial sepsis screen is negative. Risk Assessment: Do you want to hurt yourself or someone else? Patient reports no desire to harm self or others. Onset of symptoms was December 31, 2024. 08:05 Method Of Arrival: Ambulatory ss 08:05 Acuity: KEYSHA 3 ss Historical: - Allergies: 08:35 Morphine (itching ); aa5 - PMHx: 08:06 diabetes mellitus; ss - PSHx: 08:06 Appendectomy; Cholecystectomy; hysterectomy; ss - Immunization history:: Client reports receiving the 2nd dose of the Covid vaccine. - Infectious Disease History:: Denies. - Social history:: Smoking status: Patient denies any tobacco usage or history of. - Family history:: not pertinent. - Hospitalizations: : No recent hospitalization is reported. Screenin:15 [facility] ED Fall Risk Assessment (Adult) History of falling in the last 3 months, aa5 including since admission No falls in past 3 months (0 pts) Confusion or Disorientation No (0 pts) Intoxicated or Sedated No (0 pts) Impaired Gait No (0 pts) Mobility Assist Device Used No (0 pt) Altered Elimination No (0 pt) Score/Fall Risk Level 0 - 2 = Low Risk Oriented to surroundings, Maintained a safe environment, Educated pt \T\ family on fall prevention, incl call for assistance when getting out of bed, Assessed \T\ reinforced patient's understanding of fall precautions. Abuse screen: Denies threats or abuse. Nutritional screening: No deficits noted. Tuberculosis screening: No symptoms or risk factors identified. Assessment: 08:15 General: Appears uncomfortable, Behavior is cooperative. Pain: Complains of pain in aa5 right upper quadrant, left upper quadrant, right lower quadrant and left lower quadrant Pain currently is 10 out of 10 on a pain scale. Quality of pain is described as sharp, Pain began last night Is continuous. Neuro: Level of Consciousness is awake, alert, obeys commands, Oriented to person, place, time, situation. Cardiovascular: Heart tones S1 S2 present Rhythm is regular. Respiratory: Airway is patent Respiratory effort is even, unlabored, Respiratory pattern is regular, symmetrical. GI: Abdomen is round distended, Bowel sounds present X 4 quads. Abd is soft and non tender X 4 quads. Reports bloating, nausea, vomiting, Patient currently denies diarrhea. : No signs and/or symptoms were reported regarding the genitourinary system. EENT: No signs and/or symptoms were reported regarding the EENT system. Derm: Skin is pink, warm \T\ dry. Musculoskeletal: Range of motion: intact in all extremities. 10:24 Reassessment: Pt moaning, appears uncomfortable, c/o nausea and pain, MD was notified. .aa5 10:35 Reassessment: Pt drowsy post Phenergan administration. Pt appears comfortable, opens aa5 eyes to verbal stimuli. Pt's at bedside. . 11:38 Reassessment: Pt resting in bed with eyes closed, respirations even and unlabored. . aa5 Vital Signs: 08:05 BP 157 / 88; Pulse 74; Resp 27; Temp 98(O); Pulse Ox 100% on R/A; Weight 88.9 kg; ss Height 5 ft. 4 in. ; Pain 10/10; 08:15 aa5 10:35 BP 154 / 87; Pulse 66; Resp 14 S; Pulse Ox 98% on R/A; aa5 08:05 Body Mass Index 33.64 (88.90 kg, 162.56 cm) ss 08:05 Pain Scale: Adult ss 08:15 NKDA aa5 ED Course: 07:59 Patient arrived in ED. al6 08:00 Anselmo Pérez MD is Attending Physician. rn 08:06 Triage completed. ss 08:06 Arm band placed on right wrist. ss 08:14 Codie Butt, LITA is Primary Nurse. aa5 08:15 Patient has correct armband on for positive identification. Bed in low position. Call aa5 light in reach. Side rails up X 1. 08:27 COVID-19 Ag + Flu A+B Ag Sent. em1 08:27 COVID swab sent to lab. Flu and/or RSV swab sent to lab. Inserted saline lock: 22 gauge em1 in right forearm, using aseptic technique. Flushed with 10 mL NS. 08:35 intact, bleeding controlled, Pressure dressing applied, 22G to R FA dc'd, mild swelling aa5 noted to site, pt c/o pain to site. 08:40 Inserted saline lock: 20 gauge in right antecubital area, using aseptic technique. aa5 Flushed with 10 mL NS. 09:36 CT Abd/Pelvis - IV Contrast Only In Process Unspecified. EDMS 09:40 No provider procedures requiring assistance completed. aa5 10:29 Lamonte Hinojosa PA is Hospitalizing Provider. rn Administered Medications: 08:30 Drug: Ondansetron IVP 4 mg IVP once; over 2 minutes Route: IVP; Site: right forearm; aa5 08:32 Follow up: Response: No adverse reaction aa5 08:30 Drug: morphine IVP or IV 4 mg IVP once over 4 mins Route: IVP; Infused Over: 4 mins; aa5 Site: right forearm; 08:40 Follow up: pt c/o itching to IV site, MD was notified. aa5 10:25 Drug: Promethazine IVP 12.5 mg IVP once Route: IVP; Site: right antecubital; aa5 10:35 Follow up: Response: Nausea is decreased; RASS: Drowsy (-1) aa5 10:38 Drug: Piperacillin-Tazobactam IVPB 3.375 grams IVPB once over 60 mins; (mix in NS 100 aa5 mL) Route: IVPB; Infused Over: 60 mins; Site: right antecubital; 11:38 Follow up: IV Status: Completed infusion; IV Intake: 100ml aa5 Medication: 09:39 VIS not applicable for this client. aa5 Intake: 11:38 IV: 100ml; Total: 100ml. aa5 Outcome: 10:30 Decision to Hospitalize by Provider. rn 12:15 Admitted to ER Hold. Please see [facility] for further documentation. aa5 12:15 Condition: stable 12:15 Instructed on the need for admit, Demonstrated understanding of instructions, 16:59 Patient left the ED. aa5 Signatures: Dispatcher [employer] EDMS Anselmo Pérez MD MD rn Martinez, Eric em1 Codie Butt RN RN aa5 Kristie Hernandes RN RN Mara Greenfield6 Corrections: (The following items were deleted from the chart) 10:43 10:43 Response: Nausea is decreased; RASS: Drowsy (-1) aa5 aa5 12:21 08:06 Allergies: No Known Allergies; ss aa5 14:51 08:15 GI: Abdomen is round Bowel sounds present X 4 quads. Abd is soft and non tender X aa5 4 quads. Reports bloating, nausea, vomiting, Patient currently denies diarrhea, aa5
[2025-01-01 10:53] LABS: Sqamous Epithelial <5 /HPF (None Seen); Urine Bacteria None Seen /HPF (<20); Urine Bilirubin NEGATIVE (Negative); Urine Blood Negative (Negative); Urine Clarity Turbid (Clear); Urine Color Light-Yellow (Yellow); Urine Culture Reflex Order NOT NEEDED; Urine Glucose NEGATIVE (Negative); Urine Ketones NEGATIVE (Negative); Urine Microscopic Reflex YN ORDER UMIC; Urine Mucus Slight /HPF (None Seen); Urine Nitrite NEGATIVE (Negative); Urine Protein NEGATIVE (Negative); Urine RBC <5 /HPF (None Seen); Urine Urobilinogen Normal (Normal); Urine WBC <5 /HPF (<5); Urine pH 8.5 (5.0-7.0)
[2025-01-01] MEDS ORDERED: MORPHINE 2 MG/ML SYR IV PRN (11:39)
[2025-01-01] MEDS: ONDANSETRON 4 MG/2 ML VIAL IV PRN (12:15)
[2025-01-01] MEDS: HYDROMORPHONE HCL 0.5 MG/0.5 ML INJ IV PRN (12:15)
[2025-01-01] MEDS ORDERED: SODIUM CHLORIDE 0.9% 10ML INJ IV PRN (14:20)
[2025-01-01] MEDS: NA CHLORIDE 0.9% 1,000 ML IV SCH (14:30)
[2025-01-01 14:43] VITALS: BMI 35.4
--- NOTE | 2025-01-01 15:21 | P.PN ---
This is an attestation to CLEANING MANAGER note. 59-year-old patient present with abdominal pain and nausea, she was found to have a bowel obstruction so we were asked admit her. Subjective: No chest pain or shortness of breath. c/o nausea but no vomiting, abdominal pain, better with medications. No obvious bleeding. Looks comfortable in the bed. Objective: General appearance: Alert and comfortable CVS: Normal S1 and S2 Lungs: Clear to auscultation bilaterally Abdomen: Soft, sluggish bowel sounds present, mild tenderness all over Extremities: No lower extremity edema 59-year-old patient with small bowel obstruction, keep n.p.o. for now, surgical consult requested. Has esophagitis on imaging, start PPI for now. Plan discussed with the patient and family at bedside. Discharge plan depends on clinical progress.
--- NOTE | 2025-01-01 15:43 | P.HP ---
Certification for Inpatient Patient admitted to: Inpatient With expected LOS: >2 Midnights Patient will require the following post-hospital care: None Practitioner: I am a practitioner with admitting privileges, knowledge of patient current condition, hospital course, and medical plan of care. Services: Services provided to patient in accordance with Admission requirements found in Title 42 Section 412.3 of the Code of Federal Regulations Patient History Date of Service: 01/01/25 Reason for admission: SBO History of Present Illness: 59-year-old otherwise healthy female presents emergency department chief complaint of abdominal pain with nausea vomiting since last night. She does have a history of bowel obstructions, last requiring surgery around 2001. Blood work was unremarkable, CT of the abdomen pelvis showed small bowel obstruction with transition point at the distal small bowel where there is circumferential bowel wall thickening through without significant inflammatory changes discrete secondary to inflammatory stricture. Mild nonspecific mesenteric free fluid. No pneumatosis or portal venous gas. Patient only to be admitted for SBO, was seen by general surgery during her stay in the emergency department. Allergies morphine Allergy (Verified 01/01/25 12:04) Itching Home Medications: NK [No Home Meds] 01/01/25 - Past Medical/Surgical History Has patient received pneumonia vaccine in the past: No Diabetic: Yes -: DM-diet controlled -: Appendectomy -: Cholecystectomy -: Hysterectomy -: Bowel obstruction surgery 2001 Psychosocial/ Personal History: Lives with family - Social History Smoking Status: Never smoker Alcohol use: No CD- Drugs: No Caffeine use: Yes Place of Residence: Home Review of Systems 10-point ROS is otherwise unremarkable Gastrointestinal: Nausea, Vomiting, Abdominal Pain Physical Examination - Vital Signs Respirations: 14 Pulse Ox (%): 100 - Physical Exam General: Alert, In no apparent distress, Oriented x3 HEENT: Atraumatic, PERRLA, EOMI Neck: Supple, 2+ carotid pulse no bruit Respiratory: Clear to auscultation bilaterally, Normal air movement Cardiovascular: Regular rate/rhythm, Normal S1 S2 Gastrointestinal: Hypoactive, Tenderness (Mild generalized abdominal tenderness) Musculoskeletal: No tenderness Integumentary: No rashes Neurological: Normal gait, Normal speech, Normal strength at 5/5 x4 extr, Normal affect - Studies Laboratory Data (last 24 hrs) 01/01/25 01/01/25 08:25 08:25 WBC 9.00 Hgb 14.5 Hct 42.1 Plt Count 201 Sodium 138 Potassium 3.6 BUN 16 Creatinine 0.66 Glucose 135 H Total Bilirubin 0.6 AST 17 ALT 31 Alkaline Phosphatase 58 Lipase 29 Assessment and Plan - Plan Assessment: SBO Diet-controlled diabetes Plan: SBO N.p.o., IVF, as needed pain medications and antiemetics Encourage ambulation General Surgery has seen patient and is following Place NG tube if the patient has worsening nausea, vomiting, abdominal distention or pain KUB in the morning Diet controlled diabetes N.p.o. for now, monitor glucose with daily labs Add Accu-Cheks/sliding scale insulin if blood sugars are persistently elevated DVT PPX: SCD Code status: Full Discharge Plan: Home Plan to discharge in: Greater than 2 days - Advance Directives Does patient have a Living Will: Yes Does patient have a Durable POA for Healthcare: No - Code Status/Comfort Care Code Status Assessed: Yes (Full code) Critical Care: No Time Spent Managing Pts Care (In Minutes): 68
[2025-01-01] MEDS: PIPER TAZO 3.375 GM in NA CHLORIDE 0.9% 100 ML IV SCH (18:11)
[2025-01-02 05:07] LABS: Absolute Basophils 0.1 K/uL (0-0.5); Absolute Lymphocytes (CBC) 2.3 K/uL (0.7-4.9); Absolute Monocytes 0.8 K/uL (0.1-1.3); Absolute Neutrophil 6.5 K/uL (1.8-8.0); Basophils % 0.8 % (0-1.3); Hematocrit 39.5 % (36.0-45.0); Hemoglobin 13.6 g/dL (12.0-15.0); Lymphocytes % 23.6 % (15.3-44.8); MCH 32.4 pg (27.0-35.0); MCHC 34.3 g/dL (32.0-36.0); MCV 94.6 fL (80-100); Monocytes % 7.8 % (3.3-12.3); Neutrophils % 67.8 % (41.7-73.7); Nucleated Red Blood Cells % 0.1 % (0-0); Platelets 198 thou/uL (152-406); RBC Red Blood Cell Count 4.18 M/uL (3.86-4.86)
[2025-01-02 05:23] LABS: Anion Gap 9.3 mEq/L (5.0-15.0); Potassium 3.3 mEq/L (3.5-5.1)
[2025-01-02] MEDS: KCL 20 MEQ/100 mL IVPB 20 MEQ/100 ML BAG IV SCH (06:37)
--- NOTE | 2025-01-02 07:50 | RAD REPORT ---
Exam:Abdomen 1 View (KUB) Clinical history: Abdominal pain FINDINGS: Mild dilatation of small bowel in an organized fashion without significant change from the prior CT c ompatible with partial obstruction. Air is present within portions of the colon.
[2025-01-02] MEDS: PANTOPRAZOLE 40 MG INJ IVP SCH (09:28)
--- NOTE | 2025-01-02 13:10 | P.PN ---
Date of Service: 01/02/25 Subjective: Passing some gas today Still no bowel movement Feeling a little better ROS: 10 point ROS as noted above, otherwise negative Physical exam GEN: Alert, oriented, NAD HEENT: Normal conjunctiva, sclera anicteric CV: Regular rate and rhythm, no edema Pulm: Nonlabored respirations on room air ABD: Soft, mild periumbilical tenderness, nondistended MSK: No joint tenderness Integumentary: No rashes Neuro: Normal speech, normal affect Vitals reviewed Assessment: SBO Diet-controlled diabetes Plan: SBO N.p.o., IVF, as needed pain medications and antiemetics Encourage ambulation General Surgery has seen patient and is following Place NG tube if the patient has worsening nausea, vomiting, abdominal distention or pain Diet controlled diabetes N.p.o. for now, monitor glucose with daily labs Add Accu-Cheks/sliding scale insulin if blood sugars are persistently elevated DVT PPX: SCD Code status: Full Discharge Plan: Home Plan to discharge in: Greater than 2 days Time Spent Managing Pts Care (In Minutes): 35
--- NOTE | 2025-01-02 14:42 | P.PN ---
Subjective Date of Service: 01/02/25 Chief Complaint: SBO Subjective: Improving (Improved from prior exam, patient had several bowel movements, has no abdominal pain, is asking for failure at this point. She is been ambulatory as well) Physical Examination - Vital Signs Temperature: 98.5 F Blood Pressure: 125/65 Pulse: 66 Respirations: 16 Pulse Ox (%): 96 - Physical Exam General: Alert, In no apparent distress, Cooperative Gastrointestinal: Soft and benign (Soft nontender not distended no rebound or guarding no focal peritonitis significantly improved from prior exam.) Assessment And Plan - Current Problems (Diagnosis) (1) Partial small bowel obstruction Current Visit: Yes Status: Acute Plan: -Okay to advance diet from a surgical standpoint clear liquid diet and advance as tolerated. -See abdominal exams. -Continue medical management per primary team. -No plans for surgical intervention at this time.
[2025-01-02] MEDS: POTASSIUM 25 MEQ EFFERV TAB PO ONE (20:21)
[2025-01-02 21:30] VITALS: O2SAT 94
--- NOTE | 2025-01-03 02:45 | P.DS ---
Admission Date: 01/01/25 Discharge Date: 01/04/25 Disposition: ROUTINE DISCHARGE Discharge Condition: GOOD Reason for Admission: SBO Brief History of Present Illness: 59-year-old patient presented to the emergency room with abdominal pain, was noted to have with small bowel obstruction, the plan was to keep n.p.o for surgery to eval Physical exam GEN: Alert, oriented, NAD HEENT: Normal conjunctiva, sclera anicteric CV: Regular rate and rhythm, no edema Pulm: Nonlabored respirations on room air ABD: Soft, + BS, MSK: No joint tenderness Integumentary: No rashes Neuro: Normal speech, normal affect Hospital Course: 59-year-old patient presented to the emergency room with abdominal pain, was noted to have with small bowel obstruction, the plan was to keep n.p.o. she started have a bowel sounds, bowel movements, started on her diet, advance as tolerated, tolerating diet, stable to discharge home, follow-up with PCP, surgery after discharge. Call office for apt Discharge medications Cipro/Flagyl stool softeners, Miralax, dulcolax Can take Gas ex prn Assessment Small bowel obstruction -is resolved with conservative treatment, esophagitis on imaging, continue PPI after discharge Diabetes-resume blood glucose monitoring, diabetic medications after discharge Hypokalemia, potassium 3.3, replaced while inpatient Diverticulosis on CT, without diverticulitis Small fat-containing ventral hernia, Admission abdominal CT and pelvis-on admission she had a small bowel obstruction secondary to inflammatory stricture, mild nonspecific mesenteric free air, patient was treated with conservative treatment, small bowel obstruction resolved with conservative treatment, diet was advanced Repeat KUB 01/02 mild dilatation, compatible with partial bowel obstruction, patient has had several bowel movement Continue home medicines as previously prescribed GOAL: Clear understanding of disease process INSTRUCTIONS: Physician Discharge Instructions: -Follow-up with PCP in 1 to 2 weeks -Follow-up with surgery after discharge -Please call Dr. Hua at [phone] if any questions regarding hospital stay -Please call nursing station at [phone] if any nursing or medication questions -Return to the emergency room if symptoms worsen Diet: ADA, low sodium Activity: Fall precautions Vital Signs/Physical Exam: Temp Pulse Resp BP Pulse Ox 98.2 F 68 18 120/62 94 01/02/25 19:56 01/02/25 19:56 01/02/25 19:56 01/02/25 19:56 01/02/25 19:56 Laboratory Data at Discharge: WBC 9.70 thou/uL (4.3-10.9) 01/02/25 04:50 Hgb 13.6 g/dL (12.0-15.0) 01/02/25 04:50 Hct 39.5 % (36.0-45.0) 01/02/25 04:50 Plt Count 198 thou/uL (152-406) 01/02/25 04:50 Sodium 138 mEq/L (136-145) 01/02/25 04:50 Potassium 3.5 mEq/L (3.5-5.1) 01/02/25 17:00 BUN 14 mg/dL (7-18) 01/02/25 04:50 Creatinine 0.67 mg/dL (0.55-1.02) 01/02/25 04:50 Glucose 119 mg/dL (74-106) H 01/02/25 04:50 Total Bilirubin 0.6 mg/dL (0.2-1.0) 01/01/25 08:25 AST 17 U/L (15-37) 01/01/25 08:25 ALT 31 U/L (13-56) 01/01/25 08:25 Alkaline Phosphatase 58 U/L (45-117) 01/01/25 08:25 Lipase 29 U/L (13-75) 01/01/25 08:25 Home Medications: Ciprofloxacin HCl [Cipro 500 MG Tablet] 500 mg PO BID 7 Days #14 tab 01/03/25 bisacodyL [Dulcolax] 5 mg PO DAILYPRN PRN 30 Days #30 tab 01/03/25 metroNIDAZOLE [Flagyl] 500 mg PO BID 7 Days #14 tab 01/03/25 New Medications: Ciprofloxacin HCl [Cipro 500 MG Tablet] 500 mg PO BID 7 Days #14 tab bisacodyL [Dulcolax] 5 mg PO DAILYPRN PRN 30 Days #30 tab PRN Reason: Constipation metroNIDAZOLE [Flagyl] 500 mg PO BID 7 Days #14 tab Physician Discharge Instructions: 59-year-old patient presented to the emergency room with abdominal pain, was noted to have with small bowel obstruction, the plan was to keep n.p.o. she started have a bowel sounds, bowel movements, started on her diet, advance as tolerated, tolerating diet, stable to discharge home, follow-up with PCP, surgery after discharge. 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 Hua at [phone] if any questions regarding hospital stay -Please call nursing station at [phone] if any nursing or medication questions -Return to the emergency room if symptoms worsen Diet: ADA, low sodium Activity: Fall precautions Followup: Artur Abreu MD [ACTIVE - CAN ADMIT] - 1-2 Weeks NONE,NONE [Primary Care Provider] - Time spent managing pt's care (in minutes): 45
[2025-01-03 05:14] LABS: Absolute Eosinophils 0.1 K/uL (0-0.5); Absolute Lymphocytes (CBC) 2.7 K/uL (0.7-4.9); Absolute Monocytes 0.8 K/uL (0.1-1.3); Absolute Neutrophil 3.5 K/uL (1.8-8.0); Basophils % 0.6 % (0-1.3); Hematocrit 34.8 % (36.0-45.0); Lymphocytes % 38.2 % (15.3-44.8); MCH 32.8 pg (27.0-35.0); MCHC 34.5 g/dL (32.0-36.0); MCV 95.1 fL (80-100); MPV 8.3 fL (7.6-11.3); Monocytes % 10.9 % (3.3-12.3); Neutrophils % 49.3 % (41.7-73.7); Nucleated Red Blood Cells % 0.1 % (0-0); Platelets 165 thou/uL (152-406); RBC Red Blood Cell Count 3.65 M/uL (3.86-4.86); Red Cell Distribution Width 13.1 % (12.1-15.2)
[2025-01-03 05:34] LABS: Anion Gap 7.8 mEq/L (5.0-15.0); Potassium 3.8 mEq/L (3.5-5.1)
[2025-01-03] MEDS: POTASSIUM 25 MEQ EFFERV TAB PO ONE (09:12)
[2025-01-03] MEDS: MINERAL OIL 30 ML UCUP PO ONE (09:39)
[2025-01-03] MEDS: FLU (Fluarix Triv) TS24-25(6MOS UP)/PF 45 MCG/0.5 ML Syringe IM ONE (10:15)
--- NOTE | 2025-01-03 11:31 | RAD REPORT ---
EXAM: XR Abdomen 1 View (KUB) HISTORY: SBO COMPARISON: 01/01/2025 CT abdomen and pelvis. 01/02/2025 abdomen radiograph FINDINGS: Single view of the abdomen improved small bowel distention, now with nonobstructive bowel g as pattern. No suspicious calcifications are seen. The bones are unremarkable. IMPRESSION: Interval improvement of small bowel distention as above.
[2025-01-03] MEDS: SIMETHICONE 80 MG CHEWABLE TAB PO ONE (14:00)
[2025-01-03 14:06] VITALS: BP 121/58; TEMP 98.1
== END 2025-01-03 14:16 | disposition home or self-care (01) | DRG 390 ==
LOC: ER 07:54 → ERHOLD 11:38 → 2ND 16:52
PROVIDERS: ADMIT Hospitalist; ATTEND Hospitalist
DX: K56.609 Unspecified intestinal obstruction, unspecified as to partial versus complete obstruction (principal); E11.65 Type 2 diabetes mellitus with hyperglycemia; Z79.4 Long term (current) use of insulin; K20.90 Esophagitis, unspecified without bleeding; Z90.49 Acquired absence of other specified parts of digestive tract; Z90.10 Acquired absence of unspecified breast and nipple
CPT/HCPCS: 36415; 74018; 74177; 80048; 80053; 81001; 83690; 84132; 85025; 87428; 99285; J1171; J2405; J2470; J2543; J2550; J3480; J7030; Q9967